=== PATIENT | female | born 1985 | race American Indian/Alaskan Native ===

== ENCOUNTER 2019-11-10 11:36 | Emergency (ER) | payer OTHER ==
--- NOTE | 2019-11-10 12:00 | Emergency Department Report ---
Blank Doc - Documentation Documentation: 34-year-old female that presents with right foot swelling and cellulitis. This initial assessment/diagnostic orders/clinical plan/treatment(s) is/are subject to change based on patient's health status, clinical progression and re- assessment by fellow clinical providers in the ED. Further treatment and workup at subsequent clinical providers discretion. Patient/guardians urged not to elope from the ED as their condition may be serious if not clinically assessed and managed. Initial orders include: 1- Patient sent to [facility] for further evaluation and treatment 2- xrays r/o osteomyelitis
[2019-11-10 12:02] VITALS: BP 175/88
--- NOTE | 2019-11-10 12:37 | XRay Report ---
Right foot-3 views INDICATION: foot pain and swelling. COMPARISON: None. IMPRESSION: Moderate soft tissue swelling about the forefoot, especially dorsally. No displaced frac ture or malalignment. No significant DJD. Signer Name: Daniel Linder MD Signed: 11/10/2019 12:32 PM Workstation Name: [id number]
--- NOTE | 2019-11-10 12:40 | Emergency Department Report ---
ED Lower Extremity HPI - General Chief Complaint: Extremity Problem,Nontraumatic Stated Complaint: FOOT SWOLLEN Time Seen by Provider: 11/10/19 11:59 Source: patient Mode of arrival: Ambulatory Limitations: No Limitations - History of Present Illness Initial Comments: Patient is a 34-year-old -[place] female who comes to the ER complaining of a sore on her foot. She is being followed by Derm for the sore and has prescription ointments. However, today her foot was hurting so she came to the ER. She has no fall or trauma. The x-ray as ordered by the DEEPA in triage shows no acute process. The patient has no fever or chills. Patient does have acute on chronic dermatitis for which Derm is seeing her Place: home Severity: mild Improves With: nothing Worsens With: nothing Context: other - Related Data Previous Rx's Medication Instructions Recorded Last Taken Type cephALEXin [Keflex] 500 mg PO Q12HR #20 cap 11/10/19 Unknown Rx Allergies Allergy/AdvReac Type Severity Reaction Status Date / Time No Known Allergies Allergy Unverified 11/10/19 11:57 ED Review of Systems ROS: Stated complaint: FOOT SWOLLEN Other details as noted in HPI Comment: All other systems reviewed and negative ED Past Medical Hx - Past Medical History Previous Medical History?: Yes Hx Asthma: Yes Additional medical history: Heart murmur - Surgical History Past Surgical History?: No - Family History Family history: no significant - Social History Smoking Status: Never Smoker Substance Use Type: None - Medications Home Medications: Home Medications Medication Instructions Recorded Confirmed Last Taken Type cephALEXin [Keflex] 500 mg PO Q12HR #20 cap 11/10/19 Unknown Rx ED Physical Exam - General Limitations: No Limitations General appearance: alert, in no apparent distress - Head Head exam: Present: atraumatic, normocephalic - Eye Eye exam: Present: normal appearance - ENT ENT exam: Present: mucous membranes moist - Neck Neck exam: Present: normal inspection - Respiratory Respiratory exam: Present: normal lung sounds bilaterally. Absent: respiratory distress - Cardiovascular Cardiovascular Exam: Present: regular rate, normal rhythm. Absent: systolic murmur, diastolic murmur, rubs, gallop - GI/Abdominal GI/Abdominal exam: Present: soft, normal bowel sounds - Extremities Exam Extremities exam: Present: normal inspection - Back Exam Back exam: Present: normal inspection - Neurological Exam Neurological exam: Present: alert, oriented X3 - Psychiatric Psychiatric exam: Present: normal affect, normal mood - Skin Skin exam: Present: warm, dry, intact, normal color, other (What appears to have started as a blister on the patient's foot now has surrounding erythema. There is no abscess. She is neurovascularly intact). Absent: rash ED Course Vital Signs 11/10/19 11/10/19 12:00 13:21 Temperature 98.8 F Pulse Rate 95 H Respiratory 18 18 Rate Blood Pressure 175/88 O2 Sat by Pulse 100 Oximetry ED Lower Extremity MDM - Radiology Data Radiology results: report reviewed, image reviewed ro fx - Medical Decision Making Patient is under the care of a director [employer] for her skin/dermatitis. She is using 2 different ointments. It appears that the wound has been moist and that is most likely contributing to the surrounding area of erythema. There is mild erythema. Is not hot to touch. There is no abscess. The patient has no fever or chills. She is ambulatory. There is mild soft tissue swelling. Patient has no fever or chills concerning for osteomyelitis. She has no comorbid conditions such as diabetes that would make her prone to distal infection Patient's wound is been cleaned and soaked. She has been wrapped in gauze. I put her on crutches just for comfort. Patient being discharged home and she will follow-up with her [employer]. I am sending her home on Keflex given the erythema. She has been instructed to call her director [employer] to discuss this with him. Vital Signs 11/10/19 11/10/19 12:00 13:21 Temperature 98.8 F Pulse Rate 95 H Respiratory 18 18 Rate Blood Pressure 175/88 O2 Sat by Pulse 100 Oximetry - Differential Diagnosis ro fx/ soft tissue injury/ infection Critical care attestation.: If time is entered above; I have spent that time in minutes in the direct care of this critically ill patient, excluding procedure time. ED Disposition Clinical Impression: Cellulitis Disposition: DC-01 TO HOME OR SELFCARE Is pt being admited?: No Does the pt Need Aspirin: No Condition: Stable Instructions: Cellulitis (ED) Additional Instructions: CONTINUE CARE PER DERM BUT CALL THEM AND LET THEM KNOW WE HAVE TREATED YOU WITH KEFLEX DUE THE SURROUNDING AREA OF REDNESS XRAY NORMAL MED ORDERED TODAY CRUTCHES FOR COMFORT motrin or tylenol for pain FOLLOW UP WITH DERM AND OR PCP REFERRALS BELOW Prescriptions: cephALEXin [Keflex] 500 mg PO Q12HR #20 cap Referrals: BEKAH DE LA CRUZ MD [Staff Physician] - 3-5 Days BAR DEXTER MD [Primary Care Provider] - 3-5 Days SIMIN SNOW MD [Referring] - 3-5 Days Time of Disposition: 12:42
[2019-11-10] MEDS ORDERED: SODIUM CHLORIDE 0.9% IRR 500 ML BOTTLE IR ONE (12:49)
[2019-11-10] MEDS ORDERED: HYDROcodone/ACETAMINOPHEN 5-325 MG TAB PO ONE (12:49)
== END 2019-11-10 13:40 | disposition home or self-care (01) ==
LOC: ED 11:36
DX: L03.115 Cellulitis of right lower limb (principal); J45.909 Unspecified asthma, uncomplicated; Z79.899 Other long term (current) drug therapy

== ENCOUNTER 2020-01-04 21:39 | Emergency (ER) | payer OTHER | END 2020-01-04 22:27 | disposition left against medical advice (07) | LOC: ED 21:39 | DX: M54.5 Low back pain (principal); R20.0 Anesthesia of skin; Z53.21 Procedure and treatment not carried out due to patient leaving prior to being seen by health care provider ==

== ENCOUNTER 2020-04-26 09:55 | Emergency (ER) | payer OTHER ==
[2020-04-26 10:18] VITALS: BP 133/73
[2020-04-26] MEDS ORDERED: METOCLOPRAMIDE 10 MG/2 ML INJ IV ONE (10:51)
[2020-04-26] MEDS ORDERED: KETOROLAC 30 MG/1 ML INJ IV ONE (10:51)
[2020-04-26] MEDS ORDERED: diphenhydrAMINE 50 MG/ML VIAL IV ONE (10:51)
--- NOTE | 2020-04-26 10:57 | Emergency Department Report ---
ED Headache HPI - General Chief Complaint: Headache Stated Complaint: MIGRAINE Time Seen by Provider: 04/26/20 10:51 - History of Present Illness Initial Comments: Patient is a 34-year-old female presents emergency room complaints of a migraine headache that worsened this morning. She states that she has been having migraines for 2 months now. She states that she takes ewwu-[id number]-vqdtktl medications and that usually improves the headache but the headache will return later. She states that nothing has improved this headache since this morning. She has associated nausea and photophobia. She states that she also gets tingl ing all over when the headache is uncomfortable. She is constantly moving her right arm but whenever she reaches for her phone the tremors in the arms stop. She denies any vision changes, complete numbness, weakness, gait disorder throats, speech disturbance. Has a past medical history of asthma, chronic pain, sciatica, pinched nerve. She denies any medication allergies. He states her last menstrual cycle was a week ago. Allergies/Adverse Reactions: Allergies No Known Allergies Allergy (Unverified 11/10/19 11:57) Home Medications: Ambulatory Orders cephALEXin [Keflex] 500 mg PO Q12HR #20 cap 11/10/19 Butalb/Acetaminophen/Caffeine [Fioricet 50-300-40 mg CAP] 1 cap PO Q8HR PRN #12 cap 04/26/20 Metoclopramide [Reglan] 10 mg PO Q8HR PRN #12 tab 04/26/20 diphenhydrAMINE [Benadryl CAP] 25 mg PO Q8HR PRN #12 capsule 04/26/20 ED Review of Systems ROS: Stated complaint: MIGRAINE Other details as noted in HPI Comment: All other systems reviewed and negative ED Past Medical Hx - Past Medical History Previous Medical History?: Yes Hx Asthma: Yes Additional medical history: Heart murmur - Social History Smoking Status: Never Smoker Substance Use Type: None - Medications Home Medications: Home Medications Medication Instructions Recorded Confirmed Last Taken Type cephALEXin [Keflex] 500 mg PO Q12HR #20 cap 11/10/19 Unknown Rx Butalb/Acetaminophen/Caffeine 1 cap PO Q8HR PRN #12 cap 04/26/20 Unknown Rx [Fioricet 50-300-40 mg CAP] Metoclopramide [Reglan] 10 mg PO Q8HR PRN #12 tab 04/26/20 Unknown Rx diphenhydrAMINE [Benadryl CAP] 25 mg PO Q8HR PRN #12 capsule 04/26/20 Unknown Rx ED Physical Exam - General Limitations: No Limitations General appearance: alert, in no apparent distress - Head Head exam: Present: atraumatic, normocephalic - Eye Eye exam: Present: normal appearance, PERRL, EOMI. Absent: periorbital swelling, periorbital tenderness - ENT ENT exam: Present: mucous membranes moist - Respiratory Respiratory exam: Present: normal lung sounds bilaterally. Absent: respiratory distress, wheezes, rales, rhonchi, stridor, chest wall tenderness, accessory muscle use, decreased breath sounds, prolonged expiratory - Cardiovascular Cardiovascular Exam: Present: regular rate, normal rhythm, normal heart sounds. Absent: systolic murmur, diastolic murmur, rubs, gallop - Neurological Exam Neurological exam: Present: alert, oriented X3, CN II-XII intact, normal gait. Absent: motor sensory deficit - Expanded Neurological Exam Expanded Patient oriented to: Present: person, place, time Speech: Present: fluid speech Cranial nerves: EOM's Intact: Normal, Gag Reflex: Normal, Facial Sensation: Normal Cerebellar function: Finger to Nose: Normal, Heel to Barger: Normal, Romberg: Normal Upper motor neuron: Pronator Drift: Normal Sensory exam: Upper Extremity Light Touch: Normal, Upper Extremity Pin Prick: Normal, Upper Extremity Temperature: Normal, UE 2 Point Discrimination: Normal, Lower Extremity Light Touch: Normal, Lower Extremity Pin Prick: Normal, Lower Extremity Temperature: Normal, LE 2 Point Discrimination: Normal Motor strength exam: RUE: 5, LUE: 5, RLE: 5, LLE: 5 Best Eye Response (Alexander): (4) open spontaneously Best Motor Response (Truong): (6) obeys commands Best Verbal Response (Truong): (5) oriented Alexander Total: 15 - Psychiatric Psychiatric exam: Present: normal affect, normal mood - Skin Skin exam: Present: warm, dry, intact ED Course Vital Signs 04/26/20 04/26/20 10:12 11:40 Temperature 97.8 F Pulse Rate 76 Respiratory 24 18 Rate Blood Pressure 133/73 O2 Sat by Pulse 100 Oximetry ED Medical Decision Making - Radiology Data Radiology results: report reviewed Ordering Physician: CASEY WILKERSON Date of Service: 04/26/20 Procedure(s): CT head/brain wo con Accession Number(s): [id number] cc: CASEY WILKERSON CT BRAIN: 04/26/2020 INDICATION / CLINICAL INFORMATION: constant headache x 2 months. COMPARISON: None available. FINDINGS: BRAIN/INTRACRANIAL STRUCTURES: Unenhanced CT images of the brain demonstrate no evidence of acute intracranial abnormality. Ventricles and sulci are normal in size and shape. There is no evidence of ischemic injury, hemorrhage, or mass. There are no abnormal extra-axial fluid collections. EXTRACRANIAL STRUCTURES: Unremarkable. IMPRESSION: No acute abnormality. Negative unenhanced CT of the brain. All CT scans at this location are performed using dose reduction to ALARA by means of automated exposure control. Signer Name: Harley Ruiz MD Signed: 04/26/2020 11:28 AM Workstation Name: [id number] Transcribed By: ENMA Dictated By: Harley Ruiz MD Electronically Authenticated By: Harley Ruiz MD Signed Date/Time: 04/26/20 1128 DD/ 1123 TD/TT: - Medical Decision Making Patient is a 34-year-old female presents emergency room complaints of a migraine headache that worsened this morning. She states that she has been having migraines for 2 months now. She states that she takes fgbq-iuk-qpppfwq medications and that usually improves the headache but the headache will return later. She states that nothing has improved this headache since this morning. She has associated nausea and photophobia. She states that she also gets tingling all over when the headache is uncomfortable. She is constantly moving her right arm but whenever she reaches for her phone the tremors in the arms stop. She denies any vision changes, complete numbness, weakness, gait disorder throats, speech disturbance. Has a past medical history of asthma, chronic pain, sciatica, pinched nerve. She denies any medication allergies. He states her last menstrual cycle was a week ago. Vitals are stable. Patient has no focal neuro deficits on exam. CT head: No acute abnormality. Negative unenhanced CT of the brain. Initially patient was having involuntary movement of her right arm which has completely resolved after given medications. Patient was given medications while in the ED and her headache has completely resolved and she is feeling much better and ready to go home. Patient given prescription for Fioricet, Reglan, Benadryl. Advised patient please take medication as prescribed. Follow-up with your primary care doctor. Follow-up with a neurologist. Return to emergency room for new or worsening symptoms. Critical care attestation.: If time is entered above; I have spent that time in minutes in the direct care of this critically ill patient, excluding procedure time. ED Disposition Clinical Impression: Migraine headache Qualifiers: Migraine type: unspecified Status migrainosus presence: without status migrainosus Intractability: not intractable Qualified Code(s): G43.909 - Migraine, unspecified, not intractable, without status migrainosus Disposition: TO HOME OR SELFCARE Is pt being admited?: No Does the pt Need Aspirin: No Condition: Stable Instructions: Recurrent Migraine Headache, Lcmc-dd-Ltip Additional Instructions: Please take medication as prescribed. Follow-up with your primary care doctor. Follow-up with a neurologist. Return to emergency room for new or worsening symptoms. Prescriptions: diphenhydrAMINE [Benadryl CAP] 25 mg PO Q8HR PRN #12 capsule PRN Reason: headache Butalb/Acetaminophen/Caffeine [Fioricet 50-300-40 mg CAP] 1 cap PO Q8HR PRN #12 cap PRN Reason: headache Metoclopramide [Reglan] 10 mg PO Q8HR PRN #12 tab PRN Reason: headache Referrals: PRIMARY MD BETZY [Primary Care Provider] - 2-3 Days KB RUSSO MD [Referring] - 2-3 Days Forms: Work/School Release Form(ED) Time of Disposition: 12:40 Print Language: MONGOLIAN
--- NOTE | 2020-04-26 11:33 | Cat Scan Report ---
CT BRAIN: 04/26/2020 INDICATION / CLINICAL INFORMATION: constant headache x 2 months. COMPARISON: None available. FINDINGS: BRAIN/INTRACRANIAL STRUCTURES: Unenhanced CT images of the brain demonstrate no evidence of acute int racranial abnormality. Ventricles and sulci are normal in size and shape. There is no evidence of ischemic injury, hemorrhage, or mass. There are no abnormal extra-axial fluid collections. EXTRACRANIAL STRUCTURES: Unremarkable. IMPRESSION: No acute abnormality. Negative unenhanced CT of the brain. All CT scans at this location are performed using dose reduction to ALARA by means of automated expos ure control. Signer Name: Harley Ruiz MD Signed: 04/26/2020 11:28 AM Workstation Name: [id number]
== END 2020-04-26 12:49 | disposition home or self-care (01) ==
LOC: ED 09:55
DX: G43.909 Migraine, unspecified, not intractable, without status migrainosus (principal); J45.909 Unspecified asthma, uncomplicated; Z79.899 Other long term (current) drug therapy
CPT/HCPCS: 70450; 96374; 96375; 99283; J1200; J1885; J2765

== ENCOUNTER 2020-08-02 04:27 | Emergency (ER) | payer OTHER ==
[2020-08-02 05:56] LABS: Basophils # (Auto) 0.1 K/mm3 (0.0-0.1); Basophils % (Auto) 0.6 % (0.0-1.8); Eosinophils # (Auto) 0.4 K/mm3 (0.0-0.4); Eosinophils % (Auto) 3.9 % (0.0-4.3); Hematocrit 33.5 % (30.3-42.9); Hemoglobin 11.2 gm/dl (10.1-14.3); Lymphocytes # (Auto) 2.9 K/mm3 (1.2-5.4); Lymphocytes % (Auto) 30.5 % (13.4-35.0); Mean Corpuscular HGB Conc 33 % (30-34); Mean Corpuscular Volume 85 fl (79-97); Monocytes # (Auto) 0.7 K/mm3 (0.0-0.8); Monocytes % (Auto) 7.8 % (0.0-7.3); Platelet Count 241 K/mm3 (140-440); Red Blood Count 3.93 M/mm3 (3.65-5.03); Red Cell Distribution Width 14.8 % (13.2-15.2)
[2020-08-02 06:19] LABS: Alanine Aminotransferase 9 units/L (7-56); Albumin 3.5 g/dL (3.9-5); Blood Urea Nitrogen 10 mg/dL (7-17); Calcium 8.5 mg/dL (8.4-10.2); Hemolysis Index 0
[2020-08-02 06:20] LABS: BUN/Creatinine Ratio 17
[2020-08-02 08:19] LABS: Bilirubin,Urine NEG (Negative); Blood,Urine NEG (Negative); Color,Urine Yellow (Yellow); HCG Qualitative,Urine Negative (Negative); Mucus,Urine FEW /HPF; Protein,Urine <15 mg/dL mg/dL (Negative)
--- NOTE | 2020-08-02 09:02 | XRay Report ---
CHEST 2 VIEWS INDICATION / CLINICAL INFORMATION: cp. COMPARISON: None available. FINDINGS: SUPPORT DEVICES: None. HEART / MEDIASTINUM: No significant abnormality. LUNGS / PLEURA: No significant pulmonary or pleural abnormality. No pneumothorax. ADDITIONAL FINDINGS: No significant additional findings. IMPRESSION: No significant abnormality Signer Name: Farhat Shelby MD FACR Signed: 08/02/2020 8:57 AM Workstation Name: [id number]
[2020-08-02 10:34] VITALS: BP 134/81
[2020-08-02] MEDS ORDERED: ONDANSETRON 4 MG ODT TAB PO ONE (11:03)
[2020-08-02] MEDS ORDERED: HYDROcodone/ACETAMINOPHEN 5-325 MG TAB PO ONE (11:03)
--- NOTE | 2020-08-02 11:09 | Emergency Department Report ---
ED General Adult HPI - General Chief complaint: Chest Pain Stated complaint: CHEST PAIN/SOB Time Seen by Provider: 08/02/20 10:47 Source: patient Mode of arrival: Wheelchair Limitations: No Limitations - History of Present Illness Initial comments: The patient presents to the emergency department the chief complaint of chest pain that started last night and has been continuous in nature. Patient describes chest pain as a tightness on the left side of her chest without radiation. Patient also complains of mild shortness of breath. Patient has a history of asthma but states this feels different. She states she has periodic chest pain secondary to asthma. Patient denies a smoking history, recent travel, OCP usage. She denies abdominal pain or headache -: Sudden Location: chest Radiation: non-radiation Severity scale (0 -10): 5 Quality: other (Tightness) Consistency: constant Improves with: none Worsens with: none Associated Symptoms: denies other symptoms Treatments Prior to Arrival: none - Related Data Previous Rx's Medication Instructions Recorded Last Taken Type cephALEXin [Keflex] 500 mg PO Q12HR #20 cap 11/10/19 Unknown Rx Butalb/Acetaminophen/Caffeine 1 cap PO Q8HR PRN #12 cap 04/26/20 Unknown Rx [Fioricet 50-300-40 mg CAP] Metoclopramide [Reglan] 10 mg PO Q8HR PRN #12 tab 04/26/20 Unknown Rx diphenhydrAMINE [Benadryl CAP] 25 mg PO Q8HR PRN #12 capsule 04/26/20 Unknown Rx Albuterol Mdi (or & Nicu Only) 2 puff IH Q4HR PRN #1 inhalation 08/02/20 Unknown Rx [ProAir HFA Inhaler] Ibuprofen [Motrin] 800 mg PO Q8HR PRN #30 tablet 08/02/20 Unknown Rx Allergies Allergy/AdvReac Type Severity Reaction Status Date / Time No Known Allergies Allergy Unverified 11/10/19 11:57 ED Review of Systems ROS: Stated complaint: CHEST PAIN/SOB Other details as noted in HPI Constitutional: denies: chills, fever Eyes: denies: eye pain, eye discharge, vision change ENT: denies: ear pain, throat pain Respiratory: shortness of breath. denies: cough, wheezing Cardiovascular: chest pain. denies: palpitations Endocrine: no symptoms reported Gastrointestinal: denies: abdominal pain, nausea, diarrhea Genitourinary: denies: urgency, dysuria, discharge Musculoskeletal: denies: back pain, joint swelling, arthralgia Skin: denies: rash, lesions Neurological: denies: headache, weakness, paresthesias Psychiatric: denies: anxiety, depression Hematological/Lymphatic: denies: easy bleeding, easy bruising ED Past Medical Hx - Past Medical History Previous Medical History?: Yes Hx Asthma: Yes Additional medical history: Heart murmur - Surgical History Past Surgical History?: No - Social History Smoking Status: Never Smoker Substance Use Type: None - Medications Home Medications: Home Medications Medication Instructions Recorded Confirmed Last Taken Type cephALEXin [Keflex] 500 mg PO Q12HR #20 cap 11/10/19 Unknown Rx Butalb/Acetaminophen/Caffeine 1 cap PO Q8HR PRN #12 cap 04/26/20 Unknown Rx [Fioricet 50-300-40 mg CAP] Metoclopramide [Reglan] 10 mg PO Q8HR PRN #12 tab 04/26/20 Unknown Rx diphenhydrAMINE [Benadryl CAP] 25 mg PO Q8HR PRN #12 capsule 04/26/20 Unknown Rx Albuterol Mdi (or & Nicu Only) 2 puff IH Q4HR PRN #1 inhalation 08/02/20 Unknown Rx [ProAir HFA Inhaler] Ibuprofen [Motrin] 800 mg PO Q8HR PRN #30 tablet 08/02/20 Unknown Rx ED Physical Exam - General Limitations: No Limitations General appearance: alert, in no apparent distress - Head Head exam: Present: atraumatic, normocephalic - Eye Eye exam: Present: normal appearance, PERRL, EOMI - ENT ENT exam: Present: mucous membranes moist - Neck Neck exam: Present: normal inspection - Respiratory Respiratory exam: Present: normal lung sounds bilaterally. Absent: respiratory distress - Cardiovascular Cardiovascular Exam: Present: regular rate, normal rhythm. Absent: systolic murmur, diastolic murmur, rubs, gallop - GI/Abdominal GI/Abdominal exam: Present: soft, normal bowel sounds. Absent: distended, tenderness - Extremities Exam Extremities exam: Present: normal inspection - Back Exam Back exam: Present: normal inspection - Neurological Exam Neurological exam: Present: alert, oriented X3, CN II-XII intact - Psychiatric Psychiatric exam: Present: normal affect, normal mood - Skin Skin exam: Present: warm, dry, intact, normal color. Absent: rash ED Course Vital Signs 08/02/20 08/02/20 08/02/20 04:36 10:33 10:43 Temperature 98.3 F 98.4 F Pulse Rate 74 58 L Respiratory 18 17 16 Rate Blood Pressure 120/78 Blood Pressure 134/81 [Right] O2 Sat by Pulse 100 98 Oximetry ED Medical Decision Making - Lab Data Result diagrams: 08/02/20 05:31 08/02/20 05:31 Lab Results 08/02/20 08/02/20 08/02/20 Range/Units 05:31 05:31 08:23 WBC 9.6 (4.5-11.0) K/mm3 RBC 3.93 (3.65-5.03) M/mm3 Hgb 11.2 (10.1-14.3) gm/dl Hct 33.5 (30.3-42.9) % MCV 85 (79-97) fl MCH 28 (28-32) pg MCHC 33 (30-34) % RDW 14.8 (13.2-15.2) % Plt Count 241 (140-440) K/mm3 Lymph % (Auto) 30.5 (13.4-35.0) % [place] % (Auto) 7.8 H (0.0-7.3) % Eos % (Auto) 3.9 (0.0-4.3) % Baso % (Auto) 0.6 (0.0-1.8) % Lymph # (Auto) 2.9 (1.2-5.4) K/mm3 [place] # (Auto) 0.7 (0.0-0.8) K/mm3 Eos # (Auto) 0.4 (0.0-0.4) K/mm3 Baso # (Auto) 0.1 (0.0-0.1) K/mm3 Seg Neutrophils % 57.2 (40.0-70.0) % Seg Neutrophils # 5.5 (1.8-7.7) K/mm3 D-Dimer (0-234) ng/mlDDU Sodium 138 (137-145) mmol/L Potassium 4.1 (3.6-5.0) mmol/L Chloride 104.5 (98-107) mmol/L Carbon Dioxide 25 (22-30) mmol/L Anion Gap 13 mmol/L BUN 10 (7-17) mg/dL Creatinine 0.6 (0.6-1.2) mg/dL Estimated GFR > 60 ml/min BUN/Creatinine Ratio 17 % Glucose 94 (65-100) mg/dL Calcium 8.5 (8.4-10.2) mg/dL Total Bilirubin 0.50 (0.1-1.2) mg/dL AST 12 (5-40) units/L ALT 9 (7-56) units/L Alkaline Phosphatase 69 (35-129) units/L Troponin T < 0.010 < 0.010 (0.00-0.029) ng/mL Total Protein 6.5 (6.3-8.2) g/dL Albumin 3.5 L (3.9-5) g/dL Albumin/Globulin Ratio 1.2 % Urine Color (Yellow) Urine Turbidity (Clear) Urine pH (5.0-7.0) Ur Specific [place] (1.003-1.030) Urine Protein (Negative) mg/dL Urine Glucose (UA) (Negative) mg/dL Urine Ketones (Negative) mg/dL Urine Blood (Negative) Urine Nitrite (Negative) Urine Bilirubin (Negative) Urine Urobilinogen (<2.0) mg/dL Ur Leukocyte Esterase (Negative) Urine WBC (Auto) (0.0-6.0) /HPF Urine RBC (Auto) (0.0-6.0) /HPF U Epithel Cells (Auto) (0-13.0) /HPF Urine Mucus /HPF Urine HCG, Qual (Negative) 08/02/20 08/02/20 08/02/20 Range/Units 11:27 11:27 Unknown WBC (4.5-11.0) K/mm3 RBC (3.65-5.03) M/mm3 Hgb (10.1-14.3) gm/dl Hct (30.3-42.9) % MCV (79-97) fl MCH (28-32) pg MCHC (30-34) % RDW (13.2-15.2) % Plt Count (140-440) K/mm3 Lymph % (Auto) (13.4-35.0) % [place] % (Auto) (0.0-7.3) % Eos % (Auto) (0.0-4.3) % Baso % (Auto) (0.0-1.8) % Lymph # (Auto) (1.2-5.4) K/mm3 [place] # (Auto) (0.0-0.8) K/mm3 Eos # (Auto) (0.0-0.4) K/mm3 Baso # (Auto) (0.0-0.1) K/mm3 Seg Neutrophils % (40.0-70.0) % Seg Neutrophils # (1.8-7.7) K/mm3 D-Dimer 153.14 (0-234) ng/mlDDU Sodium (137-145) mmol/L Potassium (3.6-5.0) mmol/L Chloride (98-107) mmol/L Carbon Dioxide (22-30) mmol/L Anion Gap mmol/L BUN (7-17) mg/dL Creatinine (0.6-1.2) mg/dL Estimated GFR ml/min BUN/Creatinine Ratio % Glucose (65-100) mg/dL Calcium (8.4-10.2) mg/dL Total Bilirubin (0.1-1.2) mg/dL AST (5-40) units/L ALT (7-56) units/L Alkaline Phosphatase (35-129) units/L Troponin T < 0.010 (0.00-0.029) ng/mL Total Protein (6.3-8.2) g/dL Albumin (3.9-5) g/dL Albumin/Globulin Ratio % Urine Color Yellow (Yellow) Urine Turbidity Clear (Clear) Urine pH 6.0 (5.0-7.0) Ur Specific [place] 1.018 (1.003-1.030) Urine Protein <15 mg/dl (Negative) mg/dL Urine Glucose (UA) Neg (Negative) mg/dL Urine Ketones Neg (Negative) mg/dL Urine Blood Neg (Negative) Urine Nitrite Neg (Negative) Urine Bilirubin Neg (Negative) Urine Urobilinogen 4.0 (<2.0) mg/dL Ur Leukocyte Esterase Tr (Negative) Urine WBC (Auto) 16.0 H (0.0-6.0) /HPF Urine RBC (Auto) 1.0 (0.0-6.0) /HPF U Epithel Cells (Auto) 8.0 (0-13.0) /HPF Urine Mucus Few /HPF Urine HCG, Qual Negative (Negative) - EKG Data -: EKG Interpreted by Me EKG shows normal: sinus rhythm Rate: normal - Radiology Data Radiology results: report reviewed - Medical Decision Making Discussed results with patient Critical care attestation.: If time is entered above; I have spent that time in minutes in the direct care of this critically ill patient, excluding procedure time. ED Disposition Clinical Impression: Nonspecific chest pain, Pleurisy Disposition: TO HOME OR SELFCARE Is pt being admited?: No Does the pt Need Aspirin: No Condition: Stable Instructions: Nonspecific Chest Pain, Adult Additional Instructions: Return if worse Referrals: BAR DEXTER MD [Primary Care Provider] - 3-5 Days BEKAH DE LA CRUZ MD [Staff Physician] - 3-5 Days Time of Disposition: 12:34
--- NOTE | 2020-08-05 11:45 | Electrocardiograph Report ---
[facility] Test Date: 2020-08-02 Test Time: 04:40:35 Pat Name: AMIE HOPE Department: Room: Gender: F Clinical Massage Therapist: YAZAN : 1985 Requested By: ED DOC Order Number: [id number] Reading MD: Anthony Whaley Measurements Intervals [place] Rate: 73 P: 57 WI: 185 QRS: 26 QRSD: 82 T: -6 QT: 386 QTc: 425 Interpretive Statements Sinus rhythm Nonspecific T abnormalities, anterior leads No previous ECG available for comparison Electronically Signed On 08-05-2020 11:45:05 EDT by Anthony Whaley
== END 2020-08-02 12:57 | disposition home or self-care (01) ==
LOC: ED 04:27
DX: R09.1 Pleurisy (principal); R07.89 Other chest pain; J45.909 Unspecified asthma, uncomplicated; Z79.1 Long term (current) use of non-steroidal anti-inflammatories (NSAID); Z79.899 Other long term (current) drug therapy
CPT/HCPCS: 36415; 71046; 80053; 81001; 81025; 84484; 85025; 85379; 87086; 93005; Q0162